=== PATIENT | male | born 1970 | race Two or more races ===

== ENCOUNTER 2017-11-16 00:27 | Emergency (ER) | payer SELFPAY ==
[~2017-11-16] VITALS: Ht 175.3 cm; Wt 74.8 kg
[~2017-11-16 00:27] MED LIST: BACTRIM-DS1 EA ORAL; KEFLEX500 MG ORAL
--- NOTE | 2017-11-16 00:57 | Emergency Room Report ---
History of Present Illness General Chief Complaint: Abdominal Pain Source: Patient Present Illness HPI Patient presents with vomiting and epigastric pain. He states this is happened multiple times in the past when he has been drinking. He states he has acid reflux. He's been smoking a lot. He is in rehabilitation at this time. He denies vomiting blood. There is no melena. He denies any fevers or chills. He states he has epigastric pain that's 8/10 at this time and burning. No headache, rashes, chest pain, dysuria, diarrhea, extremity pain. Never evaluated for H pylori. Allergies: Coded Allergies: No Known Allergies (Unverified , 11/16/17) Patient History Past Medical History: see triage record Social History: Reports: smoking, alcohol use - Prior Social History Narrative in rehabilitation Reviewed Nursing Documentation: PMH: Agreed; PSxH: Agreed Nursing Documentation-PMH Past Medical History: No Stated History Review of Systems All Other Systems: negative except mentioned in HPI Physical Exam Vital Signs Date Time Temp Pulse Resp B/P (MAP) Pulse Ox O2 Delivery O2 Flow Rate FiO2 11/16/17 00:40 97.7 87 18 98/55 98 Room Air 97.7 Sp02 EP Interpretation: reviewed, normal General Appearance: alert, GCS 15, mild distress Head: normocephalic Eyes: bilateral eye normal inspection, bilateral eye PERRL ENT: moist mucus membranes Neck: supple Respiratory: lungs clear, normal breath sounds Cardiovascular #1: regular rate, rhythm Cardiovascular #2: 2+ radial (R) Gastrointestinal: normal inspection, normal bowel sounds, no mass, non- distended, no rebound, guarding - epigastric, tenderness Genitourinary: no CVA tenderness Musculoskeletal: back normal, gait/station normal, normal range of motion Neurologic: alert, oriented x3, grossly normal Psychiatric: mood/affect normal Skin: normal inspection, warm/dry Medical Decision Making Diagnostic Impression: Primary Impression: Epigastric abdominal pain ER Course Patient presents with vomiting with history of reflux. Also has epigastric pain. Differential includes gastritis, reflux, gastroenteritis amongst others. He'll be given Zofran and a GI cocktail with Pepcid. Depending on his response, labs may be indicated. Few risk factors for cardiac disease. Improved after treatment. Pain resolved and tolerating oral intake. Patient stable for outpatient observation and treatment. Last Vital Signs Date Time Temp Pulse Resp B/P (MAP) Pulse Ox O2 Delivery O2 Flow Rate FiO2 11/16/17 02:40 97.7 18 98/55 98 Room Air 97.7 11/16/17 01:30 88 Status: improved Disposition: HOME, SELF-CARE - rehab Condition: Improved Scripts Famotidine (PEPCID AC) 20 Mg Tablet 20 MG PO DAILY, #30 TAB Prov: Juan R Thrasher M.D. 11/16/17 Ondansetron Odt* (ZOFRAN ODT*) 4 Mg Tab.rapdis 4 MG BC EVERY 8 HOURS, #6 TAB 1 Refill Prov: Juan R Thrasher M.D. 11/16/17 Juan R Thrasher M.D. Nov 16, 2017 00:57
[2017-11-16] MEDS ORDERED: Mylanta II UD 30ml ORAL ONE (01:00)
[2017-11-16] MEDS ORDERED: Lidocaine 2% Visc 15ml soln ORAL ONE (01:00)
[2017-11-16 01:30] VITALS: BP 112/61
[2017-11-16] MEDS ORDERED: PEPCID AC20 M2 PO (02:37)
[2017-11-16] MEDS ORDERED: ONDANSETRON ODT4 MG BC (02:37)
[2017-11-16 02:40] VITALS: BP 98/55
== END 2017-11-16 02:40 | disposition home or self-care (01) ==
LOC: EDBD → EMR 00:57
DX: R10.13 Epigastric pain (principal); F17.200 Nicotine dependence, unspecified, uncomplicated; K21.9 Gastro-esophageal reflux disease without esophagitis
CPT/HCPCS: 99284

== ENCOUNTER 2017-12-16 12:54 | Emergency (ER) | payer SELFPAY ==
[~2017-12-16] VITALS: Ht 175.3 cm; Wt 77.1 kg
[~2017-12-16 12:54] MED LIST changes: +ONDANSETRON ODT4 MG BC; +PEPCID AC20 M2 PO
[2017-12-16] MEDS ORDERED: NKM (13:24)
--- NOTE | 2017-12-16 14:13 | Diagnostic Imaging Report ---
Indication: Pain, status post fall Technique: 3 views of the left shoulder Comparison: none Findings: No acute fractures. No dislocations. The joint spaces are preserved. Impression: Negative
[2017-12-16] MEDS ORDERED: Norco 5mg/325mg tab ORAL ONE (14:30)
[2017-12-16] MEDS ORDERED: IBUPROFEN600 MG ORAL (14:31)
--- NOTE | 2017-12-16 14:31 | Emergency Room Report ---
History of Present Illness General Chief Complaint: Shoulder Injury Source: Patient Present Illness HPI 45-year-old male presents to the emergency department complaining of localized 7 out of 10 in severity pain to the left shoulder primarily in the anterior portion. [place] Patient is worried because he feels that it is "out of place" in the his friend to without the beach with her and had to have his shoulder popped back into place. Patient denies numbness and tingling to the extremity. Pt. also reports itchy rash in the groin area x 1 week. denies testicular pain or swelling, swollen tender lymph nodes, or penile d/c. Denies numbness tingling or loss of sensation or gross motor movements of the extremities, incontinence of bowel or bladder. Denies CP, Palpitations, LOC, AMS, dizziness, Changes in Vision, weakness or a sudden severe headache. Allergies: Coded Allergies: No Known Allergies (Unverified , 11/16/17) Patient History Past Medical History: see triage record Past Surgical History: none Pertinent Family History: none Reviewed Nursing Documentation: PMH: Agreed; PSxH: Agreed Nursing Documentation-PMH Past Medical History: No Stated History Review of Systems All Other Systems: negative except mentioned in HPI Physical Exam Vital Signs Date Time Temp Pulse Resp B/P (MAP) Pulse Ox O2 Delivery O2 Flow Rate FiO2 12/16/17 13:21 98.5 81 16 140/84 97 Room Air 98.4 Sp02 EP Interpretation: reviewed, normal General Appearance: no apparent distress, alert, GCS 15, non-toxic Head: normocephalic, atraumatic Eyes: bilateral eye normal inspection, bilateral eye PERRL ENT: hearing grossly normal, normal voice Neck: full range of motion Respiratory: lungs clear, normal breath sounds, speaking full sentences Cardiovascular #1: regular rate, rhythm, normal capillary refill Musculoskeletal: normal inspection, back normal, gait/station normal, normal range of motion, tender - Atnerior ttp, FROM, no obvious deformity. Neurologic: alert, oriented x3, responsive, motor strength/tone normal, sensory intact, normal gait, speech normal, grossly normal Psychiatric: judgement/insight normal Skin: normal color, warm/dry, well hydrated, rash - annular erythematous lesion noted. no blisters or vessicles. Medical Decision Making PA Attestation Dr. Whatley is my supervising Physician whom patient management has been discussed with. Diagnostic Impression: Primary Impression: Sprain of shoulder, left Qualified Codes: S43.402A - Unspecified sprain of left shoulder joint, initial encounter Additional Impressions: Injury of shoulder, left Qualified Codes: S49.92XA - Unspecified injury of left shoulder and upper arm , initial encounter Tinea of groin ER Course 45-year-old male presents to the emergency department complaining of localized 7 out of 10 in severity pain to the left shoulder primarily in the anterior portion. Patient [place]. Patient is worried because he feels that it is "out of place" in the his friend to without the beach with her and had to have his shoulder popped back into place. Patient denies numbness and tingling to the extremity. Pt. also reports itchy rash in the groin area x 1 week. denies testicular pain or swelling, swollen tender lymph nodes, or penile d/c. Denies numbness tingling or loss of sensation or gross motor movements of the extremities, incontinence of bowel or bladder. Denies CP, Palpitations, LOC, AMS, dizziness, Changes in Vision, weakness or a sudden severe headache. Ddx considered but are not limited to Fracture, dislocation, contusion, A/C Separation, Sprain/Strain/Spasm rotator cuff injury, STD, fungal infection just to name a few. Vital signs: are WNL, pt. is afebrile H&PE are most consistent with musculoskeletal injury will perform imaging to r/ o fractures/dislocations. clinically diagnosed with genital fungal infection . annular erythematous lesion noted. ORDERS: - X-ray shoulder left 3 views - negative for fx, Dislocation, or significant soft tissue injury, per preliminary read in ED, and signed by LEVI Márquez , my supervising physician has reviewed, and agrees with my interpretation. ED INTERVENTIONS: - MOtrin PO -- Left arm Sling applied by automotive diagnostic technician. Pt. remains neurovascularly intact. DISCHARGE: At this time pt. is stable for d/c to home. Will provide printed patient care instructions, and any necessary prescriptions. Care plan and follow up instructions have been discussed with the patient prior to discharge. Other X-Ray Diagnostic Results Other X-Ray Diagnostic Results : X-Ray ordered: Left Shoulder # of Views/Limited Vs Complete: 3 View Indication: Pain EP Interpretation: Yes LEVI Xray: Interpretation reviewed, by supervising MD, and agrees with findings. Interpretation: no dislocation, no fractures Impression: No acute disease Electronically Signed by: Amalia Márquez PA-C Last Vital Signs Date Time Temp Pulse Resp B/P (MAP) Pulse Ox O2 Delivery O2 Flow Rate FiO2 12/16/17 13:21 98.5 81 16 140/84 97 Room Air 98.4 Disposition: HOME, SELF-CARE Condition: Stable Scripts Clotrimazole* (LOTRIMIN*) 15 Gm Cream..g. 1 APPLIC TOPIC TWICE A DAY, #15 GM Prov: Amalia Márquez 12/16/17 Ibuprofen* (MOTRIN*) 600 Mg Tablet 600 MG ORAL THREE TIMES A DAY, #30 TAB 0 Refills Prov: Amalia Márquez 12/16/17 Referrals: NOT CHOSEN [facility]/,REFERRING (PCP) Patient Instructions: Shoulder Sprain Additional Instructions: Take medications as directed. Follow up with a Primary Care Provider in 3-5 days, even if your symptoms have resolved. --Please review list of primary care clinics, if you do not already have a primary care provider Return sooner to ED if new symptoms occur, or current symptoms become worse. - Please note that this Emergency Department Report was dictated using [employer] development manager technology software, occasionally this can lead to erroneous entry secondary to interpretation by the dictation equipment. Amalia Márquez Dec 16, 2017 14:31
[2017-12-16] MEDS ORDERED: CLOTRIMAZOLE15 GM TOPIC (14:45)
[2017-12-16 15:00] VITALS: BP 137/74
== END 2017-12-16 15:00 | disposition home or self-care (01) ==
LOC: EDBD 13:36 → EMR 13:36
DX: S43.402A Unspecified sprain of left shoulder joint, initial encounter (principal); B35.6 Tinea cruris; X58.XXXA Exposure to other specified factors, initial encounter; Y92.832 Beach as the place of occurrence of the external cause
CPT/HCPCS: 99283

== ENCOUNTER 2018-02-18 17:24 | Emergency (ER) | payer MEDICAID ==
[~2018-02-18] VITALS: Ht 175.3 cm; Wt 79.4 kg
[~2018-02-18 17:24] MED LIST changes: +CLOTRIMAZOLE15 GM TOPIC; +IBUPROFEN600 MG ORAL; +NKM
[2018-02-18 17:40] VITALS: BP 143/89
[2018-02-18] MEDS ORDERED: Ketorolac 60mg Inj IM ONE (17:45)
[2018-02-18] MEDS ORDERED: Albuterol ud Inhalation HHN ONE (17:45)
[2018-02-18] MEDS ORDERED: Methocarbamol 750mg tab ORAL ONE (17:45)
[2018-02-18] MEDS ORDERED: Ipratropium 0.02% Inh Soln 2.5ml UD HHN ONE (17:45)
[2018-02-18] MEDS ORDERED: ROBAXIN-750750 MG PO (18:45)
[2018-02-18] MEDS ORDERED: IBUPROFEN600 MG ORAL (18:45)
[2018-02-18 18:52] VITALS: BP 143/89
--- NOTE | 2018-02-18 19:10 | Emergency Room Report ---
History of Present Illness General Chief Complaint: Back Pain-No Injury Source: Patient Present Illness HPI Patient is a 47-year-old male presenting for back pain after sneezing earlier this week. Pain is now a 9 out of 10 sharp sensation to the left mid back. Does not radiate. Worse with movement. He states that he heard something "pop " at the time. He has been using Motrin which only slightly helps. He does have a history of asthma and uses albuterol daily. He denies other symptoms including N, V, F, SOB Allergies: Coded Allergies: No Known Allergies (Unverified , 11/16/17) Patient History Past Medical History: see triage record Pertinent Family History: none Social History: Reports: drug use - at rehab center Reviewed Nursing Documentation: PMH: Agreed; PSxH: Agreed Nursing Documentation-PMH Past Medical History: No History, Except For Hx Asthma: Yes Review of Systems All Other Systems: negative except mentioned in HPI Physical Exam Vital Signs Date Time Temp Pulse Resp B/P (MAP) Pulse Ox O2 Delivery O2 Flow Rate FiO2 02/18/18 17:30 98.4 68 18 143/89 99 Room Air 98.4 Sp02 EP Interpretation: reviewed, normal General Appearance: no apparent distress, alert, GCS 15, non-toxic Head: normocephalic, atraumatic Eyes: bilateral eye normal inspection, bilateral eye PERRL Respiratory: chest non-tender, no accessory muscle use, speaking full sentences , wheezing, chest symmetrical Cardiovascular #1: regular rate, rhythm, no edema Musculoskeletal: normal inspection, tender - L lumbar paraspinal muscle Neurologic: alert, oriented x3, responsive, motor strength/tone normal, sensory intact, speech normal Psychiatric: judgement/insight normal, memory normal, mood/affect normal, no suicidal/homicidal ideation Skin: normal color, no rash, warm/dry, well hydrated Medical Decision Making PA Attestation Dr. Pak is my supervising physician. Patient management was discussed with my supervising physician Diagnostic Impression: Primary Impression: Muscle spasm ER Course Patient is a 47-year-old male presenting for back pain after sneezing earlier this week Ddx considered include but not limited to sprain/strain, fracture, contusion, pneumothorax, bronchitis, among others PE: Afebrile. NAD Chest is non tender. RRR. No MRG. No flail chest. There is tenderness to palpation along the left thoracic paraspinal muscles. No midline tenderness or step-offs. No ecchymosis. No swelling L rib series xrays unremarkable Pt given 15mg toradol, tylenol, and robaxin and states pain has decreased. He will be discharged home with prescription for Motrin and Robaxin. He is given instructions for heat therapy. Is told to follow-up with his primary doctor as soon as possible. ER precautions given Other X-Ray Diagnostic Results Other X-Ray Diagnostic Results : X-Ray ordered: L rib series # of Views/Limited Vs Complete: 4 View, Complete Indication: Pain EP Interpretation: Yes PA Xray: Interpretation reviewed, by supervising MD, and agrees with findings. Interpretation: no dislocation, no soft tissue swelling, no fractures Impression: No acute disease Electronically Signed by: Harish Askew PA-C Last Vital Signs Date Time Temp Pulse Resp B/P (MAP) Pulse Ox O2 Delivery O2 Flow Rate FiO2 02/18/18 18:52 98.4 68 18 143/89 96 Room Air 98.4 Status: improved Disposition: HOME, SELF-CARE Condition: Improved Scripts Ibuprofen* (MOTRIN*) 600 Mg Tablet 600 MG ORAL Q8H PRN for For Pain, #30 TAB 0 Refills Prov: HARISH ASKEW 02/18/18 Methocarbamol* (ROBAXIN-750*) 750 Mg Tablet 750 MG PO TID, #21 TAB 0 Refills Prov: HARISH ASKEW.A. 02/18/18 Patient Instructions: Heat Therapy, Muscle Strain Additional Instructions: I discussed my findings with the patient. All questions and concerns have been answered. Treatment and medication compliance have been addressed. I advised the patient that they need to follow up with PMD in 3-5 days. Return to ED if symptoms worsen, new symptoms arise, or if needed for any reason. Patient verbalized understanding of discharge instructions. HARISH ASKEW Feb 18, 2018 19:10
--- NOTE | 2018-02-19 10:12 | Diagnostic Imaging Report ---
Indication: Left mid rib pain Technique: One view of the chest, 2 views of the left ribs Comparison: none Findings: Lungs and pleural spaces are clear. Heart size is normal. No rib fracture demonstrated. No pneumothorax Impression: Negative
== END 2018-02-18 18:53 | disposition home or self-care (01) ==
LOC: EDBD 17:24 → EMR 17:49
DX: M62.838 Other muscle spasm (principal); J45.909 Unspecified asthma, uncomplicated
CPT/HCPCS: 94640; 94664; 96372; 99284